=== PATIENT | female | born 1970 | race Caucasian/White ===

== ENCOUNTER 2017-01-15 19:59 | Emergency (ER) | payer OTHER ==
[2017-01-15 20:28] VITALS: BP 125/77; PULSE 78; TEMP 98; BMI 27.4
[2017-01-15] MEDS ORDERED: METHOCARBAMOL 500 MG TABLET PO ONE (21:09)
[2017-01-15] MEDS ORDERED: LACTULOSE 20 GM/30 ML UDC (FOR ORAL USE ONLY) PO ONE (21:09)
[2017-01-15] MEDS ORDERED: KETOROLAC TROMETHAMINE 60 MG/2 ML VIAL IM ONE (21:09)
--- NOTE | 2017-01-15 21:12 | PDOC ---
History of Present Illness - General History Source: Patient Exam Limitations: No Limitations - History of Present Illness Initial Comments: 01/15/17 21:32 The patient is a 46 year old female with significant past medical history of hyperlipidemia who presents to the ED with 2 days of left back pain. Patient describes her pain as a dull sensation radiating to the left anterior abdominal wall and left lateral leg that she rate as a 7/10, in severity. Her pain is exacerbated with positional change and alleviated with position of comfort. States she did not take any medications for her symptoms and her pain slightly improved on its own. Denies paresthesias or bladder/bowel incontinence. States she had similar pain about 1 year ago where she was seen in an outside hospital and had an MRI done. She was told that they found something that they could not fix. Eventually, her pain resolved on its own. However, her pain returned and is more severe now. Patient also has complaints of constipation that she had for a while, which worsened in the past several days. Denies abdominal pain , nausea, vomiting, or diarrhea. She reports in the past, she had experience a few episodes of dizziness lasting a few seconds and resolving on its own. Patient is a school cafeteria cook head. The patient denies fever, chills, cough, SOB, chest pain, and palpitations. Allergies: NKDA Social History: No alcohol, tobacco, or drug use reported. Past Surgical History: None reported PCP: None reported <Rita Ladd - Last Filed: 01/15/17 22:41> <Marilyn Light - Last Filed: 01/17/17 04:03> - General Chief Complaint: Pain Stated Complaint: STOMACH/BACK PAIN Time Seen by Provider: 01/15/17 20:44 Past History <Rita Ladd - Last Filed: 01/15/17 22:41> - Past Medical History Other medical history: Pt denies - Psycho/Social/Smoking Cessation Hx Suicidal Ideation: No Smoking History: Never smoked Hx Alcohol Use: No Drug/Substance Use Hx: No Substance Use Type: None <Marilyn Light - Last Filed: 01/17/17 04:03> - Past Medical History Allergies/Adverse Reactions: Allergies Allergy/AdvReac Type Severity Reaction Status Date / Time No Known Allergies Allergy Verified 01/15/17 20:23 Home Medications: Ambulatory Orders Atorvastatin Ca [Lipitor] 40 mg PO HS 01/15/17 Ibuprofen [Motrin -] 600 mg PO TID #30 tablet 01/16/17 Methocarbamol [Robaxin -] 500 mg PO TID #30 tablet 01/16/17 Review of Systems - Review of Systems Able to Perform ROS?: Yes Comments:: 01/15/17 21:32 CONSTITUTIONAL: Absent: fever, no chills, no fatigue EYES: Absent: visual changes ENT: Absent: ear pain, no sore throat CARDIOVASCULAR: Absent: chest pain, no palpitations RESPIRATORY: Absent: cough, no SOB GI: +constipation Absent: abdominal pain, no nausea, no vomiting, no diarrhea GENITOURINARY: Absent: dysuria, no frequency, no hematuria MUSCULOSKELETAL: +left back pain radiating to the left anterior abdominal wall and left lateral leg SKIN: Absent: rash NEURO: +dizziness Absent: headache <Rita Ladd - Last Filed: 01/15/17 22:41> *Physical Exam - Vital Signs Last Vital Signs Temp Pulse Resp BP Pulse Ox 98.0 F 78 20 125/77 99 01/15/17 20:25 01/15/17 20:25 01/15/17 20:25 01/15/17 20:25 01/15/17 20:25 - Physical Exam Comments: 01/15/17 22:41 GENERAL: Well-appearing, well-nourished. No apparent distress. HEENT: Normocephalic, atraumatic. PERRL, EOM intact. CARDIOVASCULAR: Normal S1, S2. Regular rate and rhythm. PULMONARY: Clear to auscultation bilaterally. ABDOMEN: Soft, non-distended, non-tender. EXTREMITIES: Normal ROM in all four extremities. No gross deformities. MUSCULOSKELETAL: Point tenderness over T12, L1 and L2 SKIN: Warm, dry. No rash NEUROLOGICAL: No focal neurological deficits. <Rita Ladd - Last Filed: 01/15/17 22:41> - Vital Signs Last Vital Signs Temp Pulse Resp BP Pulse Ox 98.0 F 78 20 125/77 99 01/15/17 20:25 01/15/17 20:25 01/15/17 20:25 01/15/17 20:25 01/15/17 20:25 <Marilyn Light - Last Filed: 01/17/17 04:03> ED Treatment Course - LABORATORY CBC & Chemistry Diagram: 01/15/17 21:30 01/15/17 21:30 <Rita Ladd - Last Filed: 01/15/17 22:41> - LABORATORY CBC & Chemistry Diagram: 01/15/17 21:30 01/15/17 21:30 <Marilyn Light - Last Filed: 01/17/17 04:03> Medical Decision Making - Medical Decision Making 01/17/17 04:00 Pt comes with back pain that radiates; she has a history of MRI and pinched nerves. Pt states that she has new back pain that rasiates to her leg. However , she has no incontinence and no weakness and no other complaints. Pt will have L spine and spine xrays, as her pain is midline between the T and L spine. Pt has had no trauma. She often does to heavy lifting. Xrays normal. Pt will be treated with NSAIDS and muscle relaxants. <Marilyn Light - Last Filed: 01/17/17 04:03> *DC/Admit/Observation/Transfer - Attestations Scribe Attestion: 01/15/17 21:33 Documentation prepared by Rita Ladd, acting as dental assistant medical assistant for Marilyn Light MD/. <Rita Ladd - Last Filed: 01/15/17 22:41> - Discharge Dispostion Admit: No <Marilyn Light - Last Filed: 01/17/17 04:03> Diagnosis at time of Disposition: Muscle strain, Back pain, Pinched nerve - Discharge Dispostion Disposition: HOME Condition at time of disposition: Stable - Prescriptions Prescriptions: Ibuprofen [Motrin -] 600 mg PO TID #30 tablet Methocarbamol [Robaxin -] 500 mg PO TID #30 tablet - Referrals Referrals: STAFF,NOT ON [Primary Care Provider] - - Patient Instructions Printed Discharge Instructions: DI for Sciatica, DI for Back Strain or Sprain - Post Discharge Activity Work/School Note: Back to Work
[2017-01-15] MEDS ORDERED: LACTULOSE 20 GM/30 ML UDC (FOR ORAL USE ONLY) ONE (21:23)
[2017-01-15] MEDS ORDERED: KETOROLAC TROMETHAMINE 60 MG/2 ML VIAL ONE (21:23)
[2017-01-15] MEDS ORDERED: METHOCARBAMOL 500 MG TABLET ONE (21:23)
[2017-01-15 21:34] LABS: URINE APPEARANCE CLEAR; URINE BILIRUBIN NEGATIVE (NEGATIVE); URINE BLOOD NEGATIVE (NEGATIVE); URINE COLOR LTYELLOW; URINE GLUCOSE (UA) NEGATIVE (NEGATIVE); URINE KETONE NEGATIVE (NEGATIVE); URINE NITRITE NEGATIVE (NEGATIVE); URINE PROTEIN NEGATIVE (NEGATIVE); URINE UROBILINOGEN NEGATIVE E.U./dl (0.2-1.0)
[2017-01-15 21:42] LABS: URINE LEUK ESTERASE 1+ (NEGATIVE)
[2017-01-15 21:44] LABS: BASOPHIL 1.1 % (0-2.0); EOSINOPHIL 2.2 % (0-4.5); MCH 27.8 pg (25.7-33.7); MCHC 33.4 g/dl (32.0-36.0); MEAN CELL VOLUME 83.2 fl (80-96); MEAN PLT VOLUME 8.6 fl (7.5-11.1); PLATELET COUNT 296 K/MM3 (134-434); RDW 14.1 % (11.6-15.6); WHITE BLOOD COUNT 6.7 K/mm3 (4.0-10.0)
[2017-01-15 22:04] LABS: URINE MUCUS RARE; URINE RBC 1 /hpf (0-3); URINE WBC 3 /hpf (3-5)
[2017-01-15 22:16] LABS: ALBUMIN 4.4 g/dl (3.4-5.0); ALK PHOS 62 U/L (45-117); ANION GAP 10 (8-16); BILIRUBIN,TOTAL 0.3 mg/dL (0.2-1.0); CO2 25 mmol/L (21-32); COCKROFT - GAULT 122.2385; CREATININE 0.7 mg/dL (0.55-1.02); GLUCOSE,RANDOM 128 mg/dL (74-106); SGOT/AST 22 U/L (15-37); SGPT/ALT 29 U/L (12-78); TOT PROT 8.3 g/dl (6.4-8.2)
== END 2017-01-16 00:37 | disposition home or self-care (01) ==
LOC: JER 19:59
PROC: 3E0233Z Introduction of Anti-inflammatory into Muscle, Percutaneous Approach (ICD-10-PCS; principal; 2017-01-15)
DX: M54.42 Lumbago with sciatica, left side (principal); G58.8 Other specified mononeuropathies; S39.012A Strain of muscle, fascia and tendon of lower back, initial encounter; X58.XXXA Exposure to other specified factors, initial encounter; Y93.89 Activity, other specified
CPT/HCPCS: 36415; 72070-TC; 72100-TC; 80053; 81003; 81015; 84703; 85025; 96372; 99282-25

== ENCOUNTER 2017-03-13 21:01 | Emergency (ER) | payer SELFPAY ==
[2017-03-13 21:08] VITALS: BP 125/77; PULSE 83; TEMP 98.4; BMI 28.2
[2017-03-13] MEDS ORDERED: diphenhydrAMINE HCL 25 MG CAPSULE (FP) PO ONE ×2 (21:28→21:33)
--- NOTE | 2017-03-13 21:39 | PDOC ---
History of Present Illness - General Chief Complaint: Rash Stated Complaint: ALERGIC REACTION Time Seen by Provider: 03/13/17 21:22 - History of Present Illness Initial Comments: 03/13/17 21:33 CHIEF COMPLAINT: rash HISTORY OF PRESENT ILLNESS: 47 yo F with hx of seasonal allergies presents to [facility] with rash x 2 days. Patient reports eating jannette shortly before onset of rash, which has worsened over the past two days. Patient denies any fever, cough, sore throat, nausea, vomiting, diarrhea. SOCIAL HISTORY: Denies tobacco, alcohol, illicit drug use. ALLERGIES: No known drug allergies REVIEW OF SYSTEMS General/Constitutional: Denies fever or chills. HEENT: Denies sore throat. Respiratory: Denies cough. Gastrointestinal: Denies nausea, vomiting, diarrhea. Genitourinary: Denies dysuria, frequency, or change in urination. Musculoskeletal: Denies joint or muscle swelling or pain. Denies neck or back pain. Skin and breasts: Rash. PHYSICAL EXAM General Appearance: Well-appearing, appropriately dressed. No apparent distress. HEENT: EOMI, PERRLA. Respiratory/Chest: Lungs CTAB. Cardiovascular: RRR. S1, S2. Musculoskeletal/Extremities: Normal inspection. FROM of all extremities, normal capillary refill. Pelvis Stable. No CVA tenderness. No tenderness to extremities, pedal edema, swelling, erythema or deformity. Integumentary: Diffuse generalized pruritic erythematous papular rash to entire body not involving palsm or soles of feet. Appropriate color, dry, warm. No cyanosis, erythema, jaundice or rash Neurologic: huc ob II-XII intact. Fully oriented, alert. Appropriate mood/affect. Motor strength 5/5. No appreciable EOM palsy, facial droop or sensory deficit. Past History - Past Medical History Allergies/Adverse Reactions: Allergies Allergy/AdvReac Type Severity Reaction Status Date / Time No Known Allergies Allergy Verified 03/13/17 21:08 Home Medications: Ambulatory Orders Atorvastatin Ca [Lipitor] 40 mg PO HS 01/15/17 Ibuprofen [Motrin -] 600 mg PO TID #30 tablet 01/16/17 Methocarbamol [Robaxin -] 500 mg PO TID #30 tablet 01/16/17 Diphenhydramine HCl/Zinc Acet [Benadryl 2% Cream] 1 applic TP TID #1 tube Hypercholesterolemia: Yes - Psycho/Social/Smoking Cessation Hx Suicidal Ideation: No Smoking History: Never smoked Hx Alcohol Use: No Drug/Substance Use Hx: No Substance Use Type: None *Physical Exam - Vital Signs Last Vital Signs Temp Pulse Resp BP Pulse Ox 98.4 F 83 18 125/77 100 03/13/17 21:05 03/13/17 21:05 03/13/17 21:05 03/13/17 21:05 03/13/17 21:05 Medical Decision Making - Medical Decision Making 03/13/17 21:39 47 yo F with hx of seasonal allergies presents to [facility] with rash x 2 days -25 mg Benadryl *DC/Admit/Observation/Transfer Diagnosis at time of Disposition: Rash and nonspecific skin eruption - Discharge Dispostion Disposition: HOME Condition at time of disposition: Stable Admit: No - Prescriptions Prescriptions: Diphenhydramine HCl/Zinc Acet [Benadryl 2% Cream] 1 applic TP TID #1 tube - Patient Instructions Printed Discharge Instructions: DI for General Allergic Reactions Additional Instructions: Please use medication as prescribed. Follow up with your plant facilities technician for further evaluation of your allergens. If you experience any swelling of the tongue, throat, mouth, or lips, difficulty breathing, fever, vomiting, diarrhea, or any new or worsening symptoms, please return to the ER immediately.
== END 2017-03-13 21:51 | disposition home or self-care (01) ==
LOC: JERFT 21:01
DX: R21 Rash and other nonspecific skin eruption (principal); J30.2 Other seasonal allergic rhinitis
CPT/HCPCS: 99281-25

== ENCOUNTER 2022-08-11 09:15 | Emergency (ER) | payer OTHER ==
[2022-08-11 09:33] VITALS: BP 126/76; PULSE 80; RESP 18; TEMP 98.9; BMI 28.2
[2022-08-11] MEDS ORDERED: ACETAMINOPHEN 500 MG TABLET (FP) PO ONE (10:00)
[2022-08-11] MEDS ORDERED: NAPROXEN 500 MG TABLET PO ONE (10:00)
[2022-08-11] MEDS ORDERED: LIDOCAINE 5% TOPICAL PATCH TP ONE (10:00)
[2022-08-11] MEDS ORDERED: ACETAMINOPHEN 325 MG TABLET (FP) ONE (10:29)
[2022-08-11] MEDS ORDERED: NAPROXEN 500 MG TABLET ONE (10:29)
[2022-08-11] MEDS ORDERED: LIDOCAINE 5% TOPICAL PATCH ONE (10:29)
[2022-08-11] MEDS ORDERED: LIDOCAINE PATCH REMOVAL MC SCH (22:00)
== END 2022-08-11 12:12 | disposition home or self-care (01) ==
LOC: JERFT 09:15
DX: M54.2 Cervicalgia (principal); V49.50XA Passenger injured in collision with unspecified motor vehicles in traffic accident, initial encounter
CPT/HCPCS: 70450-TC; 72125-TC; 99284-25

== ENCOUNTER 2022-09-08 04:16 | Day surgery (SDC) | payer OTHER ==
[2022-09-02 14:47] VITALS: BMI 28.3
[2022-09-08] MEDS ORDERED: MIDAZOLAM HCL 2 MG/2 ML SINGLE DOSE VIAL ONE (13:10)
[2022-09-08] MEDS ORDERED: ONDANSETRON 4 MG/2 ML VIAL ONE (13:10)
[2022-09-08] MEDS ORDERED: FENTANYL CITRATE/PF 50 MCG/ML VIAL ONE (13:10)
[2022-09-08 14:09] VITALS: TEMP 98.3
[2022-09-08 15:16] VITALS: BP 110/75; PULSE 64; RESP 16
== END 2022-09-08 15:32 | disposition home or self-care (01) ==
LOC: JASU-SURG 04:16
PROVIDERS: ATTEND Urology
PROC: 0TF3XZZ Fragmentation in Right Kidney Pelvis, External Approach (ICD-10-PCS; principal; 2022-09-08 12:00)
DX: N20.0 Calculus of kidney (principal)
CPT/HCPCS: 82962